=== PATIENT | female | born 1960 | race Caucasian/White ===

== ENCOUNTER 2020-05-10 09:13 | Emergency (ER) | payer OTHER, SELFPAY ==
[2020-05-10 09:19] VITALS: BP 172/101; PULSE 116; RESP 18; TEMP 36.2; O2SAT 99
--- NOTE | 2020-05-10 09:50 | ED.ABDPAIN ---
HPI - Abdominal Pain General Chief Complaint: Abdominal Pain Stated Complaint: abd pain Time Seen by Provider: 05/10/20 09:32 History of Present Illness HPI narrative: 60 yo female presents to the ED for an abdominal abscess. She has had a mildly painful subcutaneous nodule near her umbilicus for several days. More recently becoming larger and painful. Yesterday she noted that the skin began to turn red. She denies any systemic symptoms. Related Data Home Medications Medication Instructions Recorded Confirmed ketorolac 0.4 drp 05/10/20 Allergies Allergy/AdvReac Type Severity Reaction Status Date / Time No Known Allergies Allergy Unverified 05/10/20 09:27 Review of Systems Review of Systems: All systems reviewed & are unremarkable except as noted in HPI and below Constitutional: Constitutional: Denies fever(s) Cardiovascular: Cardiovascular: Denies chest pain Respiratory: Respiratory: Denies dyspnea Gastrointestinal: Gastrointestinal: Reports abdominal pain, Reports nausea and Denies vomiting Genitourinary: Genitourinary: Denies hematuria and Denies dysuria Musculoskeletal: Musculoskeletal: Denies back pain Neurologic: Denies numbness and Denies weakness PMFSH Past Medical History Medical History (Updated 05/10/20 @ 18:29 by Juan Colindres MD) HTN (hypertension) Surgical History Surgical History (Updated 05/10/20 @ 18:29 by Juan Colindres MD) Hx laparoscopic cholecystectomy Social History Social History Gender identity (if verbalized by the patient): Female Exam Const: General: no acute distress and alert Nutritional Appearance: well nourished Orientation/consciousness: patient oriented x3 HENMT: Head: normal to inspection Resp: Effort & Inspection: normal respiratory effort Auscultation: clear to auscultation bilaterally Cardio: Rate: regular rate Rhythm: regular rhythm GI: Inspection: non-distended GI Palp: Yes Soft to palpation Other: moderate periumbilical abscess with overlying cellulitis Skin: Other: See Abdominal exam Neuro: General: patient oriented x3, moves all extremities, no focal motor deficits and CN's II-XI intact bilaterally Speech: normal speech Gait exam (Neuro): Normal gait present Extrem: General: normal to inspection Procedures Abscess I/D abdomen: Local Anesthetic: lidocaine 1% and with epi Amount of anesthesia used (mL): 5 Technique: incised with #11 blade Amount of fluid expressed (mL): 6 Irrigation: Yes Packing used?: iodoform I&D Results: Pus Course Vital Signs Vital signs: Vital Signs Temperature 36.2 C L 05/10/20 09:19 Pulse Rate 116 H 05/10/20 09:19 Respiratory Rate 18 05/10/20 09:19 Blood Pressure 172/101 H 05/10/20 09:19 Pulse Oximetry 99 05/10/20 09:19 Temperature 36.2 C L 05/10/20 09:19 Pulse Rate 116 H 05/10/20 09:19 Respiratory Rate 18 05/10/20 09:19 Blood Pressure 172/101 H 05/10/20 09:19 Pulse Oximetry 99 05/10/20 09:19 MDM - Abdominal Pain Medical Records Attestation: I reviewed the patient's medical records. Lab Data Attestation: I reviewed the patient's lab results. Result diagrams: 05/10/20 09:36 05/10/20 09:36 Labs: Lab Results 05/10/20 05/10/20 05/10/20 Range/Units 09:36 09:36 09:36 WBC 8.3 (4.5-10.0) K/mm3 RBC 5.86 H (4.2-5.4) M/mm3 Hgb 17.5 H (12.0-15.0) g/dL Hct 51.0 H (37.0-47.0) % MCV 87.0 (80-100) fl MCH 29.9 (26-34) pg MCHC 34.3 (32-36) g/dl RDW 12.5 (11.5-14.5) % Plt Count 306 (150-375) k/mm3 MPV 10.2 (7.4-10.4) fl Immature Gran % (Auto) 0.4 (0-0.5) % Neut % (Auto) 71.7 (45.5-73.1) % Lymph % (Auto) 20.3 (18.3-44.2) % [place] % (Auto) 7.0 (2.6-8.5) % Eos % (Auto) 0.4 (0-4.4) % Baso % (Auto) 0.2 (0.2-1.2) % Lymph # (Auto) 1.69 (0.9-3.2) K/mm3 [place] # (Auto) 0.6 (0.1-0.6) K/mm3 Eos # (Aut
[2020-05-10 10:00] LABS: Basophils Percent Auto 0.2 % (0.2-1.2); Eosinophils Percent Auto 0.4 % (0-4.4); Hemoglobin 17.5 g/dL (12.0-15.0); Immature Granulocyte Absolute 0.03 K/mm3 (0.00-0.031); Immature Granulocyte Percent A 0.4 % (0-0.5); Lymphocytes Absolute Auto 1.69 K/mm3 (0.9-3.2); Lymphocytes Percent Auto 20.3 % (18.3-44.2); Mean Corpuscular HGB Conc 34.3 g/dl (32-36); Mean Corpuscular Hemoglobin 29.9 pg (26-34); Mean Platelet Volume 10.2 fl (7.4-10.4); Monocytes Absolute Auto 0.6 K/mm3 (0.1-0.6); Neutrophils Percent Auto 71.7 % (45.5-73.1); Platelet Count Result 306 k/mm3 (150-375); Red Blood Count 5.86 M/mm3 (4.2-5.4); Red Cell Distribution Width 12.5 % (11.5-14.5); White Blood Count 8.3 K/mm3 (4.5-10.0)
[2020-05-10 10:05] LABS: Add Urine Microscopic? YES; Appearance Urine Clear (Clear); Bacteria Urine Trace /hpf; Bilirubin Urine Negative (Negative); Blood Urine Negative (Negative); Color Urine Yellow (Yellow); Glucose Urine UA Negative (Negative); Ketones Urine 1+ mg/dL (Negative); Leukocyte Esterase Ur Trace LEU/UL (Negative); Mucus Urine Few /lpf; Nitrate Urine Negative (Negative); Protein Urine 1+ mg/dL (Negative); RBC Urine 0-2 /hpf (0-2); Specific Grav Ur 1.016 (1.001-1.035); Squamous Epithelial Cell Urine Many /hpf (Few); Transitional Epi Cells Urine Rare /hpf (None Seen); Urobilinogen Urine Negative mg/dL (<2.0)
[2020-05-10 10:12] LABS: Alanine Aminotransferase 27 U/L (4-35); Albumin Level 4.2 g/dL (3.5-5.1); Alkaline Phosphatase 141 U/L (38-126); Anion Gap 8 mmol/L (8-16); Aspartate Amino Transferase 28 U/L (14-36); Bilirubin,Total 0.9 mg/dL (0.2-1.3); Blood Urea Nitrogen 9 mg/dL (7-17); Carbon Dioxide 23 mmol/L (22-30); Chloride 108 mmol/L (98-107); Estimated CRCL calculation 78 ml/min; Estimated Glomerular Filt Rate > 60; Glucose 106 mg/dL (65-105); Lipase 69 U/L (23-300); Potassium 3.8 mmol/L (3.4-5.0); Sodium 139 mmol/L (137-145)
[2020-05-10] MEDS: KETOROLAC 30 MG/ML VIAL (*BKC) IV PUSH (10:12)
[2020-05-10] MEDS: MORPHINE SULFATE (*CRX) 2 MG/ML INJ IV PUSH (10:13)
== END 2020-05-10 11:13 | disposition home or self-care (01) ==
PROVIDERS: Emergency Provider Emergency Medicine; PCP Physician Assistant
DX: L02.211 Cutaneous abscess of abdominal wall (principal); I10 Essential (primary) hypertension
CPT/HCPCS: 10061; 36415; 80053; 81001; 83690; 85025; 99283; J1885; J2270

== ENCOUNTER 2021-06-21 22:26 | Emergency (ER) | payer OTHER, SELFPAY ==
--- NOTE | ~2021-06-21 | CT_ITS ---
EXAMINATION: CT soft tissue neck w con EXAM DATE: 06/22/2021 00:12 INDICATION: Throat swelling after recent dental work. TECHNIQUE: Spiral CT of the neck was performed following intravenous injection of 75 mL Omnipaque 350 . Axial, coronal and sagittal images were reviewed. The dose-length product (DLP) for this examinat ion was 536.07 mGy-cm. The exposure was tailored according to patient size (auto mA exposure control ), and iterative reconstruction (ASIR) was used as additional dose reduction technique. There is no prior study for comparison. FINDINGS: There is left-sided predominant submandibular edema. Mildly edematous left submandibular gl and. The thyroid gland is unremarkable. Parotid gland unremarkable. There is no cervical lymphade nopathy. There are no masses identified. The superior mediastinum is unremarkable. The airway i s unremarkable. Parapharyngeal and pre-glottic fat planes are preserved. The opacified vasculatur e is patent. Patient has had bilateral ocular lens surgery. Small left maxillary sinus mucous ret ention cyst or polyp. Lung apices are clear. Moderate to severe C5-6 and 6-7 disc disease. IMPRESSION: Left submandibular edema. No abscess. Reviewed, dictated and finalized at location A.
[2021-06-21 22:27] VITALS: BP 147/86; PULSE 119; RESP 16; O2SAT 98
[2021-06-21 22:38] VITALS: BP 150/94; O2SAT 96
[2021-06-21 22:39] VITALS: O2SAT 96
--- NOTE | 2021-06-21 22:45 | ED.GENADULT ---
HPI - General Adult General Chief complaint: Unspecified Stated complaint: dental swelling Time Seen by Provider: 06/21/21 22:30 History of Present Illness HPI narrative: 61-year-old female presents the emergency room with complaints of facial swelling, difficulty breathing, shortness of breath. Patient states 9 days ago she was at the dentist and had a dental implant placed on her left lower molar. Patient was given a 5-day course of stepdown prednisone. Patient states yesterday she started to develop facial pain and swelling, discussed case with her dentist. Dentist placed her on amoxicillin and Flagyl, patient states antibiotics are not improving her symptoms. Patient is now complaining of swelling under her tongue, left face, and having difficulty swallowing secretions at this time. Related Data Home Medications Medication Instructions Recorded Confirmed ketorolac 0.4 drp 05/10/20 Allergies Allergy/AdvReac Type Severity Reaction Status Date / Time No Known Allergies Allergy Unverified 05/10/20 09:27 Review of Systems Review of Systems: CONSTITUTIONAL: Denies fever, chills, or sweats. EYES: Denies visual changes, redness, or discharge. ENT: Reports dysphagia, reports facial swelling and pain CARDIOVASCULAR: Denies chest pain, palpitations, or edema. RESPIRATORY: Reports shortness of breath. GASTROINTESTINAL: Denies abdominal pain, nausea, vomiting, or diarrhea. GENITOURINARY: Denies dysuria or hematuria. SKIN: Denies rash or itching. MUSCULOSKELETAL: Denies back pain, joint pain, or myalgia. NEUROLOGIC: Denies headache, numbness, dizziness, or weakness. PSYCHIATRIC: Denies anxiety or depression. PMFSH Past Medical History Medical History HTN (hypertension) Surgical History Surgical History Hx laparoscopic cholecystectomy Social History Social History Gender identity (if verbalized by the patient): Female Exam Narrative: GENERAL: Well-appearing, well-nourished, and in no acute distress. HEAD: Normocephalic, atraumatic. Facial swelling to the left mandible EYES: PERRLA and EOMI. ENT: No dental tenderness, soft tissue swelling to the lingual frenulum NECK: Supple. No adenopathy or masses. No carotid bruits or JVD CHEST: Clear to auscultation. No respiratory distress. No wheezes rales or rhonchi HEART: Regular rate and rhythm. No murmur heard. Normal peripheral pulses. EXTREMITIES: Normal range of motion. No edema. SKIN: Warm, dry, no rash. NEURO: No focal deficits. Alert and oriented x3. PSYCH: Normal mood and affect. Course Vital Signs Vital signs: Vital Signs Pulse Rate 119 H 06/21/21 22:27 Respiratory Rate 16 06/21/21 22:27 Blood Pressure 147/86 H 06/21/21 22:27 Pulse Oximetry 98 06/21/21 22:27 Pulse Rate 119 H 06/21/21 22:27 Respiratory Rate 16 06/21/21 22:27 Blood Pressure 159/102 H 06/22/21 01:31 Pulse Oximetry 94 06/22/21 01:31 Medical Decision Making MDM Narrative Medical decision making narrative: 61-year-old female presented the emergency room with acute onset of left perimandibular and submandibular swelling following dental work. Patient started on antibiotic per her dentist, stating symptoms were worsening following that. CBC showed a white count of 15.7, CMP is unremarkable. CT showed perimandibular soft tissue swelling to the left side, with no observable abscess. Patient was given a course of clindamycin IV, and Solu-Medrol during her ER visit. Patient was able to keep fluids down successfully. Patient also stated that the swelling in her throat and mouth had improved. Patients to go home, follow-up with her dentist on Wednesday. Vital Signs Vital Signs: Vital Signs Pulse Rate 119 H 06/21/21 22:27 Respiratory Rate 16 06/21/21 22:27 Blood Pressure 147/86 H 06/21/21 22:27
[2021-06-21] MEDS: ONDANSETRON INJ 4 MG/2 ML VIAL IV PUSH (22:55)
[2021-06-21] MEDS: SODIUM CHLORIDE 0.9% IV 1,000 ML 999 ML IV CONT (22:55)
[2021-06-21] MEDS: methylPREDNISolone SOD SUCC 125 MG VIAL IV PUSH (22:55)
[2021-06-21 22:58] LABS: Basophils Percent Auto 0.2 % (0.2-1.2); Eosinophils Percent Auto 0.3 % (0-4.4); Hematocrit 48.2 % (37.0-47.0); Hemoglobin 16.1 g/dL (12.0-15.0); Immature Granulocyte Absolute 0.06 K/mm3 (0.00-0.031); Immature Granulocyte Percent A 0.4 % (0-0.5); Lymphocytes Absolute Auto 1.77 K/mm3 (0.9-3.2); Lymphocytes Percent Auto 11.2 % (18.3-44.2); Mean Corpuscular HGB Conc 33.4 g/dl (32-36); Mean Corpuscular Volume 89.8 fl (80-100); Mean Platelet Volume 9.7 fl (7.4-10.4); Monocytes Absolute Auto 1.1 K/mm3 (0.1-0.6); Monocytes Percent Auto 6.7 % (2.6-8.5); Neutrophils Absolute Auto 12.8 K/mm3 (1.3-6.7); Neutrophils Percent Auto 81.2 % (45.5-73.1); Platelet Count Result 265 k/mm3 (150-375); Red Blood Count 5.37 M/mm3 (4.2-5.4); Red Cell Distribution Width 12.6 % (11.5-14.5); White Blood Count 15.7 K/mm3 (4.5-10.0)
[2021-06-21 23:00] VITALS: O2SAT 91
[2021-06-21] MEDS: CLINDAMYCIN 600 MG/D5W 50 ML 600 MG/50 ML PIGGYBACK 100 MG IVPB (23:08)
[2021-06-21 23:30] VITALS: O2SAT 95
[2021-06-21 23:45] VITALS: O2SAT 89
[2021-06-21 23:53] LABS: Alanine Aminotransferase 164 U/L (4-35); Albumin Level 3.7 g/dL (3.5-5.1); Alkaline Phosphatase 167 U/L (38-126); Anion Gap 5 mmol/L (8-16); Aspartate Amino Transferase 128 U/L (14-36); Bilirubin,Total 1.2 mg/dL (0.2-1.3); Blood Urea Nitrogen 9 mg/dL (7-17); Calcium 8.2 mg/dL (8.4-10.2); Carbon Dioxide 28 mmol/L (22-30); Chloride 102 mmol/L (98-107); Estimated CRCL calculation 81 ml/min; Estimated Glomerular Filt Rate > 60; Glucose 143 mg/dL (65-110); Potassium 3.9 mmol/L (3.4-5.0); Sodium 135 mmol/L (137-145)
[2021-06-22] VITALS (9 sets, daily range): BP systolic 140–159; BP diastolic 83–102; PULSE 95; RESP 13; O2SAT 89–95
[2021-06-22] MEDS: ONDANSETRON INJ 4 MG/2 ML VIAL IV PUSH (00:58)
== END 2021-06-22 02:21 | disposition home or self-care (01) ==
PROVIDERS: Emergency Provider Nurse Practitioner Family; PCP Physician Assistant
DX: K04.7 Periapical abscess without sinus (principal); I88.9 Nonspecific lymphadenitis, unspecified; I10 Essential (primary) hypertension; Z98.811 Dental restoration status
CPT/HCPCS: 36415; 70491; 80053; 85025; 96361; 96365; 96374; 96375; 99284; J2405; J2930; J7030; Q9967

== ENCOUNTER 2022-01-23 10:32 | Emergency (ER) | payer OTHER, SELFPAY ==
[2022-01-23 10:41] VITALS: BP 153/91; PULSE 103; RESP 18; TEMP 36.4; O2SAT 97
--- NOTE | 2022-01-23 11:33 | ED.FEMALEGU ---
HPI - Female Genitourinary General Chief complaint: Urogenital-Female Stated complaint: uti complaint Source: patient Mode of arrival: ambulatory History of Present Illness HPI Narrative: This 61-year-old female who presents our urgent care with complaints of urinary discomfort. Patient notes that when she urinates it feels like a sting and she does have discomfort her lower abdominal area. Patient notes that she took at zone yesterday which temporarily resolved her symptoms. She notes that today her symptoms worsened. The patient denies SOB, CP, palpitation, extremity numbness, lightheadedness, dizziness, constipation, diarrhea, chills, hematuria pelvic pain or fever. Related Data Home Medications Medication Instructions Recorded Confirmed bupropion HCl 150 mg 24 hr tablet, 150 mg PO DAILY 01/23/22 01/23/22 extended release buspirone 15 mg tablet 15 mg BID 01/23/22 01/23/22 famotidine 20 mg tablet 20 mg DAILY 01/23/22 01/23/22 omeprazole 40 mg capsule,delayed 40 mg DAILY 01/23/22 01/23/22 release rosuvastatin 10 mg tablet 10 mg DAILY 01/23/22 01/23/22 zolpidem 5 mg tablet 5 mg HS 01/23/22 01/23/22 Allergies Allergy/AdvReac Type Severity Reaction Status Date / Time No Known Allergies Allergy Verified 01/23/22 11:01 Review of Systems Review of Systems: A 14 organ system Review of Systems was performed and pertinent positives included in the HPI, otherwise remaining ROS is negative. PMFSH Past Medical History Medical History HTN (hypertension) Surgical History Surgical History Hx laparoscopic cholecystectomy Social History Social History Gender identity (if verbalized by the patient): Female Exam Narrative: GENERAL: This is a well-nourished, well-developed patient, in no apparent distress. HEAD: normocephalic, atraumatic. EYES: PERRL. Sclera clear/white. Vision is grossly intact. EARS: External ears normal, auditory canals clear and without drainage, TMs normal without perforation. Hearing grossly intact. NOSE: External nose normal with no obvious nasal discharge, nares without redness, no rhinorrhea. THROAT: Mucous membranes moist, posterior pharynx clear. NECK: Neck supple, non-tender without lymphadenopathy, masses or thyromegaly. CARDIOVASCULAR: Regular rate and rhythm without murmurs, gallops, or rubs. RESPIRATORY: Clear to auscultation. Breath sounds equal bilaterally. No wheezes, rales, or rhonchi. GASTROINTESTINAL: Abdomen soft, non-tender, nondistended. Bowel sounds are active. No hepato-splenomegaly, or palpable masses. No guarding. CVA negative SKIN: warm, intact with no suspicious lesions or rash, good texture and turgor. NEURO: awake, alert, and oriented to person, place and time. There were no obvious focal neurologic abnormalities. EXTREMITIES: Normal range of motion. No edema. No calf tenderness. Course Course Emergency Course: Patient will discharge with Macrobid Level of Care: Express Care Visit Vital Signs Vital signs: Vital Signs Temperature 97.6 F 01/23/22 10:41 Pulse Rate 103 H 01/23/22 10:41 Respiratory Rate 18 01/23/22 10:41 Blood Pressure 153/91 H 01/23/22 10:41 Pulse Oximetry 97 01/23/22 10:41 Oxygen Delivery Room Air 01/23/22 10:41 Temperature 97.6 F 01/23/22 10:41 Pulse Rate 103 H 01/23/22 10:41 Respiratory Rate 18 01/23/22 10:41 Blood Pressure 153/91 H 01/23/22 10:41 Pulse Oximetry 97 01/23/22 10:41 Oxygen Delivery Room Air 01/23/22 10:41 MDM - Female Genitourinary MDM Narrative Medical decision making narrative: Patient discharged with Macrobid Differential Diagnosis Differential diagnosis: Likely urinary tract infection and vaginitis Lab Data Labs: Urine Glucose Negative Refe
== END 2022-01-23 11:33 | disposition home or self-care (01) ==
PROVIDERS: Emergency Provider Nurse Practitioner; PCP Physician Assistant
DX: N39.0 Urinary tract infection, site not specified (principal); I10 Essential (primary) hypertension
CPT/HCPCS: 81003; 87086; 87088; 99213; G0463

== ENCOUNTER → 2023-05-08 08:52 | Outpatient (CLI) | payer OTHER, SELFPAY ==
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
== END ==
PROVIDERS: PCP Physician Assistant; Visit Provider Physician Assistant
DX: S83.231A Complex tear of medial meniscus, current injury, right knee, initial encounter (principal); X58.XXXA Exposure to other specified factors, initial encounter; M17.11 Unilateral primary osteoarthritis, right knee; M23.41 Loose body in knee, right knee
CPT/HCPCS: 73721